=== PATIENT | male | born 1990 | race Caucasian/White ===

== ENCOUNTER 2017-10-30 04:36 | Emergency (ER) | payer OTHER, SELFPAY | END 2017-10-30 05:42 | disposition home or self-care (01) | LOC: M ED 04:36 | DX: M79.89 Other specified soft tissue disorders (principal); L53.9 Erythematous condition, unspecified; T63.441A Toxic effect of venom of bees, accidental (unintentional), initial encounter; Y92.9 Unspecified place or not applicable; Y93.9 Activity, unspecified; Z72.0 Tobacco use | CPT/HCPCS: 99283 ==

== ENCOUNTER 2017-11-19 17:49 | Emergency (ER) | payer OTHER ==
[2017-11-19] MEDS: KETOROLAC 30 MG/ML VIAL (J1885) IV (19:15)
[2017-11-19] MEDS: METOCLOPRAMIDE INJ 10MG/2ML VIAL (J2765) IV (19:25)
[2017-11-19 19:45] LABS: BASO % 0.4 % (0.0-1.0); EOS # 0.1 10^3/uL (0.0-0.50); EOS % 0.8 % (0.0-3.0); HEMATOCRIT 51.1 % (42.0-52.0); HEMOGLOBIN 17.3 g/dl (13.5-17.5); IMMATURE GRANULOCYTE % 0.4 % (0-3.0); LYMPH # 3.1 10^3/uL (1.5-6.5); LYMPH % 32.5 % (24.0-44.0); MEAN CORPUSCULAR HEMOGLOBIN 27.5 pg (27.0-33.0); MEAN CORPUSCULAR HGB CONC 33.9 g/dl (32.0-36.5); MEAN CORPUSCULAR VOLUME 81.1 fl (80.0-96.0); MONO % 10.4 % (0.0-5.0); NEUTROPHILS # 5.3 10^3/uL (1.8-7.7); NEUTROPHILS % 55.5 % (36.0-66.0); PLATELET COUNT, AUTOMATED 334 10^3/uL (150-450); RED CELL DISTRIBUTION WIDTH 13.1 % (11.5-14.5); WHITE BLOOD COUNT 9.5 10^3/uL (4.0-10.0)
[2017-11-19 20:24] LABS: ANION GAP 7 MEQ/L (8-16); BLOOD UREA NITROGEN 11 MG/DL (7-18); CALCIUM LEVEL 9.4 MG/DL (8.5-10.1); CARBON DIOXIDE LEVEL 28 MEQ/L (21-32); CHLORIDE LEVEL 105 MEQ/L (98-107); CREATININE FOR GFR 1.08 MG/DL (0.70-1.30); FREE T4 0.93 NG/DL (0.76-1.46); GLOMERULAR FILTRATION RATE > 60.0 (>60); GLUCOSE, FASTING 90 MG/DL (70-100); MAGNESIUM LEVEL 2.2 MG/DL (1.8-2.4); POTASSIUM SERUM 3.7 MEQ/L (3.5-5.1); SODIUM LEVEL 140 MEQ/L (136-145); THYROID STIMULATING HORMONE 0.772 uIU/ML (0.358-3.740)
== END 2017-11-19 21:10 | disposition home or self-care (01) ==
LOC: M ED 17:49
DX: G43.909 Migraine, unspecified, not intractable, without status migrainosus (principal); F17.220 Nicotine dependence, chewing tobacco, uncomplicated
CPT/HCPCS: J1885

== ENCOUNTER 2018-10-13 17:47 | Emergency (ER) | payer OTHER, SELFPAY ==
[~2018-10-13] VITALS: Ht 185.4 cm; Wt 129.7 kg
[~2018-10-13 17:47] MED LIST: AUGM500T34 PO; PRED20TA PO
[2018-10-13] MEDS ORDERED: AMOX500T PO (19:11)
[2018-10-13] MEDS ORDERED: NEOM1SUS10 OTIC (19:11)
[2018-10-13 19:23] VITALS: BP 130/75
== END 2018-10-13 19:25 | disposition home or self-care (01) ==
LOC: M ED 17:47
DX: H60.93 Unspecified otitis externa, bilateral (principal); F17.200 Nicotine dependence, unspecified, uncomplicated